=== PATIENT | male | born 1970 | race Caucasian/White ===

== ENCOUNTER 2018-07-30 12:04 | Emergency (ER) | payer SELFPAY ==
[~2018-07-30] VITALS: Wt 96.8 kg
[2018-07-30 12:10] VITALS: BP 134/77; PULSE 82; RESP 17
--- NOTE | 2018-07-30 13:31 | ERD ---
ER Documentation Chief Complaint Chief Complaint LUMP ON TESTICULAR AREA X2 WEEKS HPI Patient 48-year-old male presenting to ER for lump on testicle x2 weeks. Patient patient states he noticed the lump in the shower and says it changes sizes. Patient also states he has had some back pain since he is noticed the delmy mp. His body aches fevers or chills. Patient denies nausea vomiting diarrhea. Patient denies any allergies to medications. Patient does state his sister was diagnosed with ovarian cancer at age 39. ROS All systems reviewed and are negative except as per history of present illness. Medications Home Meds Active Scripts Doxycycline Hyclate* (Doxycycline Hyclate*) 100 Mg Tablet., 100 MG PO BID for 10 Days, TAB Prov:TOSIN JEFFERS PA-C 07/30/18 PMhx/Soc Medical and Surgical Hx: pt denies Medical Hx, pt denies Surgical Hx Hx Alcohol Use: Yes Hx Substance Use: Yes (marajuana) Hx Tobacco Use: No Smoking Status: Never smoker FmHx Family History: No diabetes, No coronary disease, No other Physical Exam Vitals Vital Signs Date Temp Pulse Resp B/P (MAP) Pulse Ox O2 O2 Flow FiO2 Time Delivery Rate 07/30/18 98.8 82 17 134/77 98 12:10 (96) Physical Exam Const: No acute distress Resp: Clear to auscultation bilaterally Cardio: Regular rate and rhythm, no murmurs Skin: No petechiae or rashes Back: No midline or flank tenderness Genital exam: Patient has approximately 1 cm nodule behind his right testicle. The region is fixed hard and nonmobile. No pain on palpation. No erythematous or streaking noted. Results 24 hrs Current Medications Medications Dose Sig/Justine Start Time Status Last (Trade) Ordered Route PRN Stop Time Admin Dose Reason Admin Lidocaine 20 ml ONCE ONCE 07/30/18 DC (Xylocaine SC 15:00 1% (Mdv) 20 07/30/18 15:00 ml) Procedures/MDM ED course: The patient was stable throughout the ED course. The patient and/or family inf ormed of laboratory and diagnostic imaging results throughout the ED course. Diagnostic imaging: Read by radiologist Beau Ford MD, M PROCEDURE: US Scrotum. CLINICAL INDICATION: Palpable nodule, swelling TECHNIQUE: Multiple sonographic images of the scrotal region were obtained utilizing a linear array transducer with grayscale and color-flow and a Doppler imaging. The images were reviewed on a high-resolution PACS workstation. COMPARISON: No prior studies are available for comparison. FINDINGS: The right testicle is well visualized and has a normal echotexture. No focal areas of abnormal echogenicity are visualized. The right testicle measures 4.9 x 2.7 x 3.5 cm. There is normal color-flow. The right epididymis is visualized and unremarkable in appearance. There is normal color-flow. The left testicle is well visualized and has a normal echotexture. No focal areas abnormal echogenicity are visualized. The left testicle measures 4.4 x 2.4 x 3.1 cm. There is normal color-flow. The left epididymis is visualized and is unremarkable in appearance. There is normal color-flow. There is mild bilateral hydrocele. There is a small 9 x 4 x 6 mm hypoechoic nodule in the subcutaneous soft tissues of the right scrotal sac. RPTAT: AA IMPRESSION: Normal appearance of the testicles. Mild bilateral hydroceles. Tiny 9 mm nodule in the subcutaneous soft tissues of the right scrotal sac, nonspecific. Procedures: Patient refused I&D treatment. Patient was advised that if this treatment is not done that the region may become infected. The patient was aware of the risk and stated he would follow back up with his primary care provider or return to the ER if symptoms worsen. Medical decision making: Patient 48-year-old male presenting with nodule on right testicle. Patient's physical exam was remarkable for small nontender nodule on the underside of his right testicle. Examination revealed that this was fixed non- mobile. Ultrasound was ordered revealing a small 9 x 4 x 6 mm hypoechoic nodule in the subcutaneous soft tissues of the right scrotal sac. Patient most likely has sebaceous cyst. An I&D kit was ordered and the procedure was explained to the patient. The patient refused treatment. The patient was advised that if I&D was not done this region may become infected. Patient is aware of the risks. At this time I have low suspicion for pyelonephritis, nephrolithiasis, appendicitis, epididymitis, ureteritis, orchitis, balanitis, prostatitis. phimosis, priapism, penile contusion, incarcerated hernia or strangulated hernia Prescription for home: Doxycycline, patient was consulted on side effects of medication. Discharge: At this time, patient is stable for discharge and outpatient management. I have instructed the patient to follow-up with his\her primary care physician in 1 to 2 days. I have discussed with the patient the possibility of needing to see a specialist for further work-up and imaging studies if symptoms persist. I have instructed the patient to promptly return to the ER for any new or worsening symptoms including increased pain, fever, nausea, vomiting, weakness or LOC. The patient and\or family expressed understanding of and agreement with this plan. All questions were answered. Home care instructions were provided. Disclaimer: Inadvertent spelling and grammatical errors are likely due to EHR\dictation software use and do not reflect on the overall quality of patient care. Also, please note that the electronic time recorded on the note does not necessarily reflect the actual time of the patient encounter. Departure Condition: Stable Patient Instructions: Sebaceous Cyst Referrals: [facility] TOSIN JEFFERS PA-C July 30, 2018 13:31
[2018-07-30] MEDS ORDERED: DOXY100T20 PO (14:56)
[2018-07-30] MEDS ORDERED: LIDOCAINE 1% (MDV) 20 ML INJ SC ONE (15:00)
== END 2018-07-30 15:08 | disposition home or self-care (01) ==
LOC: FTE 12:04
DX: N50.89 Other specified disorders of the male genital organs (principal)
CPT/HCPCS: 76870